=== PATIENT | male | born 1970 ===

== ENCOUNTER 2018-12-02 22:00 | Emergency (ER) | payer SELFPAY ==
[2018-12-02] MEDS ORDERED: KETOROLAC 30 MG/ML INJ ONE (22:26)
[2018-12-02] MEDS ORDERED: NA CHLORIDE 0.9% 1,000 ML ONE (22:26)
--- NOTE | 2018-12-02 22:55 | ER ---
Nurse's Notes [facility] Name: Sebastian Sawyer Age: 48 yrs Sex: Male : 1970 Arrival Date: 12/02/2018 Time: 22:03 Bed 3 Private MD: Diagnosis: Anterior dislocation of proximal end of tibia, right knee-reduced;Other internal derangements of right knee Presentation: 12/02 22:03 Presenting complaint: EMS states: Patient was pulled over by police and had lp1 license and began running into the street; Patient tripped while running and deformity to right knee noted, right leg at 45 degree angle on arrival of EMS; No LOC, denies any other injuries; + ETOH, + Marijuana. Transition of care: patient was not received from another setting of care. Onset of symptoms was December 02, 2018. Risk Assessment: Do you want to hurt yourself or someone else? Patient reports no desire to harm self or others. Initial Sepsis Screen: Does the patient meet any 2 criteria? No. Patient's initial sepsis screen is negative. Does the patient have a suspected source of infection? No. Patient's initial sepsis screen is negative. Care prior to arrival: Placed on backboard. Medication(s) given: 100mcg Fentanyl IV, 25mg Ketamine IV IV initiated. 20 GA, in the right antecubital area, Oxygen administered. via nasal cannula. 22:03 Method Of Arrival: EMS: [facility] lp1 22:03 Acuity: CHIQUITA 3 lp1 Historical: - Allergies: 22:09 No Known Allergies; lp1 - Home Meds: 22:09 None [Active]; lp1 - PMHx: 22:09 None; lp1 - PSHx: 22:09 None; lp1 - Immunization history:: Adult Immunizations unknown. - Ebola Screening: : No symptoms or risks identified at this time. - Family history:: not pertinent. - Social history:: Smoking status: unknown Patient uses alcohol, street drugs, marijuana. Screenin:09 Abuse screen: Denies threats or abuse. Denies injuries from another. Nutritional lp1 screening: No deficits noted. Tuberculosis screening: No symptoms or risk factors identified. 22:12 Fall Risk No fall in past 12 months (0 pts). Secondary diagnosis (15 points) impaired ed1 mobility, IV access (20 points). Ambulatory Aid- Crutches/Cane/Walker (15 pts). Gait- Impaired (20 pts.). Mental Status- Oriented to own ability (0 pts). Total Herman Fall Scale indicates High Risk Score (45 or more points). Fall prevention measures have been instituted. Side Rails Up X 2 Frequent Obs/Assessments Occuring As available patient and family educated on Fall Prevention Program and Strategies. Assessment: 22:00 Reassessment: Dr. Cornelius at bedside; Manual manipulation of right knee. lp1 22:12 Pain: Complains of pain in right knee Pain does not radiate. Pain currently is 9 out of ed1 10 on a pain scale. Quality of pain is described as sharp, throbbing, Pain began 30 min ago. Is continuous. Musculoskeletal: Circulation, motion, and sensation intact. Range of motion: limited in right knee. 22:20 Reassessment: Patient appears in no apparent distress at this time. No changes from ed1 previously documented assessment. Patient and/or family updated on plan of care and expected duration. Pain level reassessed. Patient is alert, oriented x 3, equal unlabored respirations, skin warm/dry/pink. Patient states symptoms have not improved. 23:24 Reassessment: Patient appears in no apparent distress at this time. Patient and/or ed1 family updated on plan of care and expected duration. Pain level reassessed. Patient is alert, oriented x 3, equal unlabored respirations, skin warm/dry/pink. Patient states feeling better. Patient states symptoms have improved. Vital Signs: 22:08 BP 140 / 86; Pulse 82; Resp 16; Pulse Ox 97% on R/A; Weight 81.65 kg (R); Height 5 ft. lp1 11 in. (180.34 cm); Pain 9/10; 22:20 BP 133 / 83; Pulse 100; Resp 16; Temp 97.5(O); Pulse Ox 99% on R/A; Pain 9/10; ed1 23:24 BP 119 / 70; Pulse 88; Resp 16; Pulse Ox 98% on R/A; Pain 6/10; ed1 22:08 Body Mass Index 25.10 (81.65 kg, 180.34 cm) lp1 ED Course: 22:03 Patient arrived in ED. lp1 22:03 Curtis Cornelius MD is Attending Physician. [facility] 22:07 Triage completed. lp1 22:08 Arm band placed on left wrist. lp1 22:11 Lanie Salazar, RN is Primary Nurse. ed1 22:12 X-ray completed. Portable x-ray completed in exam room. Patient tolerated procedure sg4 well. 22:12 Patient has correct armband on for positive identification. Placed in gown. Bed in low ed1 position. Call light in reach. Pulse ox on. NIBP on. 22:12 Maintain EMS IV. Dressing intact. Good blood return noted. Site clean \T\ dry. Gauge \T\ ed 1 site: 20G right a/c. 22:14 Knee Right 3 View XRAY In Process Unspecified. EDMS 22:54 González Atkinson MD is Referral Physician. obed 23:26 Knee immobilizer applied on right knee. ed1 23:43 Radiology exam delayed due to lab results not completed at this time. (BUN/Creatinine). vr 02/ 00:[address] via stretcher. ed1 01:27 González Atkinson MD is Referral Physician. obed 01:38 No provider procedures requiring assistance completed. IV discontinued, intact, ed1 bleeding controlled, No redness/swelling at site. Pressure dressing applied. Crutch training done. 02:03 Lower Ext Angio In Process Unspecified. EDMS Administered Medications: 12/02 22:21 Drug: TORadol 30 mg Route: IVP; Site: right antecubital; ed1 23:00 Follow up: Response: No adverse reaction; Pain is decreased ed1 22:22 Drug: NS 0.9% 1000 ml Route: IV; Rate: 1 bolus; Site: right antecubital; ed1 02 00:00 Follow up: IV Status: Completed infusion; IV Intake: 1000ml ed1 Intake: 00:00 IV: 1000ml; Total: 1000ml. ed1 Outcome: 12/02 22:54 Discharge ordered by . oebd / 01:27 Discharge ordered by . obed 01:38 Discharged to home ambulatory, with crutches, with family. ed1 01:38 Condition: good 01:38 Discharge instructions given to patient, Instructed on discharge instructions, follow up and referral plans. medication usage, Demonstrated understanding of instructions, follow-up care, medications, Prescriptions given X 2. 01:56 Patient left the ED. ed1 Signatures: Dispatcher [employer] EDMS Curtis Cornelius MD MD cha Riggs, Erika, RN RN ed1 Aby Quinones Laura, ARTHUR RN lp1 Nubia Kendall sg4 Corrections: (The following items were deleted from the chart) 12/02 22:09 22:03 Care prior to arrival: Medication(s) given: 100mcg Fentanyl IV, 25mg Ketamine IV lp1 IV initiated. 20 GA, in the right antecubital area, Oxygen administered. via nasal cannula, lp1
--- NOTE | 2018-12-02 22:55 | EDPHYS ---
Physician Documentation [facility] Name: Sebastian Sawyer Age: 48 yrs Sex: Male : 1970 Arrival Date: 12/02/2018 Time: 22:03 Bed 3 Private MD: ED Physician Curtis Cornelius HPI: 12/02 22:07 This 48 yrs old Black Male presents to ER via Unassigned with complaints of Knee Injury.obed 22:07 The patient presents with decreased range of motion, pain, swelling, right knee gross obed deformity. The complaints affect the right knee. Context: The problem was sustained outdoors. Onset: The symptoms/episode began/occurred just prior to arrival. Modifying factors: The symptoms are alleviated by remaining still, the symptoms are aggravated by movement. Associated signs and symptoms: The patient has no apparent associated signs or symptoms. Treatment prior to arrival includes: prescription medications, ketamine. Severity of symptoms: At their worst the symptoms were moderate, in the emergency department the symptoms are unchanged. The patient has not experienced similar symptoms in the past. Historical: - Allergies: 22:09 No Known Allergies; lp1 - Home Meds: 22:09 None [Active]; lp1 - PMHx: 22:09 None; lp1 - PSHx: 22:09 None; lp1 - Immunization history:: Adult Immunizations unknown. - Ebola Screening: : No symptoms or risks identified at this time. - Family history:: not pertinent. - Social history:: Smoking status: unknown Patient uses alcohol, street drugs, marijuana. ROS: 22:07 Constitutional: Negative for fever, chills, and weight loss, Eyes: Negative for injury, obed pain, redness, and discharge, ENT: Negative for injury, pain, and discharge, Neck: Negative for injury, pain, and swelling, Cardiovascular: Negative for chest pain, palpitations, and edema, Respiratory: Negative for shortness of breath, cough, wheezing, and pleuritic chest pain, Abdomen/GI: Negative for abdominal pain, nausea, vomiting, diarrhea, and constipation, Back: Negative for injury and pain, : Negative for injury, bleeding, discharge, and swelling, Skin: Negative for injury, rash, and discoloration, Neuro: Negative for headache, weakness, numbness, tingling, and seizure, Psych: Negative for depression, anxiety, suicide ideation, homicidal ideation, and hallucinations, Allergy/Immunology: Negative for hives, rash, and allergies, Endocrine: Negative for neck swelling, polydipsia, polyuria, polyphagia, and marked weight changes, Hematologic/Lymphatic: Negative for swollen nodes, abnormal bleeding, and unusual bruising. 22:07 MS/extremity: Positive for injury or acute deformity, decreased range of motion, of the right knee. Exam: 22:07 Constitutional: This is a well developed, well nourished patient who is awake, alert, obed and in no acute distress. Head/Face: Normocephalic, atraumatic. Eyes: Pupils equal round and reactive to light, extra-ocular motions intact. Lids and lashes normal. Conjunctiva and sclera are non-icteric and not injected. Cornea within normal limits. Periorbital areas with no swelling, redness, or edema. ENT: Nares patent. No nasal discharge, no septal abnormalities noted. Tympanic membranes are normal and external auditory canals are clear. Oropharynx with no redness, swelling, or masses, exudates, or evidence of obstruction, uvula midline. Mucous membranes moist. Neck: Trachea midline, no thyromegaly or masses palpated, and no cervical lymphadenopathy. Supple, full range of motion without nuchal rigidity, or vertebral point tenderness. No Meningismus. Chest/axilla: Normal chest wall appearance and motion. Nontender with no deformity. No lesions are appreciated. Cardiovascular: Regular rate and rhythm with a normal S1 and S2. No gallops, murmurs, or rubs. Normal PMI, no JVD. No pulse deficits. Respiratory: Lungs have equal breath sounds bilaterally, clear to auscultation and percussion. No rales, rhonchi or wheezes noted. No increased work of breathing, no retractions or nasal flaring. Abdomen/GI: Soft, non-tender, with normal bowel sounds. No distension or tympany. No guarding or rebound. No evidence of tenderness throughout. Back: No spinal tenderness. No costovertebral tenderness. Full range of motion. Male : Normal genitalia with no discharge or lesions. Skin: Warm, dry with normal turgor. Normal color with no rashes, no lesions, and no evidence of cellulitis. Neuro: Awake and alert, GCS 15, oriented to person, place, time, and situation. Cranial nerves II-XII grossly intact. Motor strength 5/5 in all extremities. Sensory grossly intact. Cerebellar exam normal. Normal gait. Psych: Awake, alert, with orientation to person, place and time. Behavior, mood, and affect are within normal limits. 22:07 Musculoskeletal/extremity: Extremities: decreased ROM, pain, swelling, ROM: limited active range of motion due to pain, limited passive range of motion due to pain, Circulation is intact in all extremities. Pulses: noted to be 4+ in the bilateral radial, brachial, femoral, popliteal, posterior tibial and and dorsalis pedis arteries., Sensation intact. Compartment Syndrome exam of affected extremity: is normal. DVT Exam: negative Homans' sign noted on exam, no appreciated bluish discoloration, no erythema, no increased warmth, pain, swelling, tenderness. Vital Signs: 22:08 BP 140 / 86; Pulse 82; Resp 16; Pulse Ox 97% on R/A; Weight 81.65 kg (R); Height 5 ft. lp1 11 in. (180.34 cm); Pain 9/10; 22:20 BP 133 / 83; Pulse 100; Resp 16; Temp 97.5(O); Pulse Ox 99% on R/A; Pain 9/10; ed1 23:24 BP 119 / 70; Pulse 88; Resp 16; Pulse Ox 98% on R/A; Pain 6/10; ed1 22:08 Body Mass Index 25.10 (81.65 kg, 180.34 cm) lp1 Procedures: 22:13 Reduction: of the right knee, using traction, manipulation, flexion, Immobilized with obed Patient tolerated well. Post reduction film - reveals normal alignment. MDM: 22:03 Patient medically screened. [facility] 22:12 Data reviewed: vital signs, nurses notes, radiologic studies, plain films. [facility] 12/02 22:47 Order name: CBC with Diff; Complete Time: 01:26 [facility] 12/02 22:47 Order name: Comprehensive Metabolic Panel; Complete Time: 00:17 [facility] 12/02 22:07 Order name: Knee Right 3 View XRAY [facility] 12/02 22:55 Order name: Lower Ext Angio [facility] 12/03 01:21 Order name: CBC Smear Scan; Complete Time: 01:26 [facility] 12/02 22:07 Order name: Knee Immobilizer; Complete Time: 23:26 [facility] 12/02 22:52 Order name: Ice pack; Complete Time: 22:56 obed 12/02 22:52 Order name: Crutches; Complete Time: 01:37 [facility] Administered Medications: 22:21 Drug: TORadol 30 mg Route: IVP; Site: right antecubital; ed1 23:00 Follow up: Response: No adverse reaction; Pain is decreased ed1 22:22 Drug: NS 0.9% 1000 ml Route: IV; Rate: 1 bolus; Site: right antecubital; ed1 12/03 00:00 Follow up: IV Status: Completed infusion; IV Intake: 1000ml ed1 Disposition: 12/03/18 01:27 Discharged to Home. Impression: Anterior dislocation of proximal end of tibia, right knee - reduced, Other internal derangements of right knee. - Condition is Stable. - Discharge Instructions: How to Use a Knee Brace, Knee Dislocation, Knee Immobilizer, Knee Dislocation, [id number]. - Prescriptions for Ibuprofen 600 mg Oral Tablet - take 1 tablet by ORAL route every 6 hours As needed take with food; 28 tablet. Tylenol- Codeine #3 300-30 mg Oral Tablet - take 2 tablet by ORAL route every 6 hours As needed; 30 tablet. - Medication Reconciliation Form, Thank You Letter, Antibiotic Education, Prescription Opioid Use form. - Follow up: Private Physician; When: 2 - 3 days; Reason: Recheck today's complaints, Continuance of care, Re-evaluation by your physician. Follow up: Dr. González Atkinson; When: 1 - 2 days; Reason: Recheck today's complaints, Re-evaluation by your physician. - Problem is new. - Symptoms have improved. Signatures: Dispatcher [employer] EDCA Curtis Cornelius MD MD cha Riggs, Erika, RN RN ed1 Devika Spain, RN RN lp1 Corrections: (The following items were deleted from the chart) 12/02 23:13 22:54 12/02/2018 22:54 Discharged to Home. Impression: Anterior dislocation of proximal obed end of tibia, right knee - reduced. Condition is Stable. Discharge Instructions: Knee Dislocation, Knee Dislocation, [id number]. Prescriptions for Ibuprofen 600 mg Oral Tablet - take 1 tablet by ORAL route every 8 hours As needed take with food; 21 tablet, Tylenol-Codeine #3 300-30 mg Oral Tablet - take 2 tablet by ORAL route every 6 hours As needed; 30 tablet. and Forms are Medication Reconciliation Form, Thank You Letter, Antibiotic Education, Prescription Opioid Use. Follow up: Private Physician; When: 2 - 3 days; Reason: Recheck today's complaints, Continuance of care, Re-evaluation by your physician. Follow up: Dr. González Atkinson; When: 1 - 2 days; Reason: Recheck today's complaints, Re-evaluation by your physician. Problem is new. Symptoms have improved. [facility] 12/03 01:56 01:27 12/03/2018 01:27 Discharged to Home. Impression: Anterior dislocation of proximal ed1 end of tibia, right knee - reduced; Other internal derangements of right knee. Condition is Stable. Discharge Instructions: How to Use a Knee Brace, Knee Dislocation, Knee Immobilizer, Knee Dislocation, [id number]. Prescriptions for Ibuprofen 600 mg Oral Tablet - take 1 tablet by ORAL route every 8 hours As needed take with food; 21 tablet, Tylenol-Codeine #3 300-30 mg Oral Tablet - take 2 tablet by ORAL route every 6 hours As needed; 30 tablet, Ibuprofen 600 mg Oral Tablet - take 1 tablet by ORAL route every 6 hours As needed take with food; 28 tablet, Tylenol-Codeine #3 300-30 mg Oral Tablet - take 2 tablet by ORAL route every 6 hours As needed; 30 tablet. and Forms are Medication Reconciliation Form, Thank You Letter, Antibiotic Education, Prescription Opioid Use. Follow up: Private Physician; When: 2 - 3 days; Reason: Recheck today's complaints, Continuance of care, Re-evaluation by your physician. Follow up: Dr. González Atkinson; When: 1 - 2 days; Reason: Recheck today's complaints, Re-evaluation by your physician. Problem is new. Symptoms have improved. [facility]
[2018-12-02 23:38] LABS: Absolute Lymphocytes (CBC) 1.1 K/uL (0.7-4.9); Absolute Monocytes 0.6 K/uL (0.1-1.3); Absolute Neutrophil 9.9 K/uL (1.8-8.0); Basophils % 0.5 % (0-1.3); Eosinophils % 0.2 % (0-4.4); Hematocrit 38.4 % (39.6-49.0); Lymphocytes % 9.1 % (15.3-44.8); Monocytes % 4.9 % (3.3-12.3); RBC Red Blood Cell Count 3.93 M/uL (4.33-5.43)
[2018-12-02 23:57] LABS: Albumin 3.7 g/dL (3.4-5.0); Bilirubin Total 0.4 mg/dL (0.2-1.0); Potassium 3.8 mmol/L (3.5-5.1); Protein, Total 6.9 g/dL (6.4-8.2)
[2018-12-03 01:21] LABS: Blood Morphology Comment NOT SEEN (NOT SEEN); Platelet Estimate ADEQ; Urine White Blood Cell Casts OK
--- NOTE | 2018-12-03 15:33 | RAD REPORT ---
EXAM DESCRIPTION: RAD - Knee Right 3 View - 12/02/2018 10:13 pm CLINICAL HISTORY: 48 years Male, PAIN. COMPARISON: None. FINDINGS: No fracture or dislocation. Bone mineralization is normal Joint spaces are preserved. Soft tissues are unremarkable. IMPRESSION: No acute osseous abnormality. Electronically signed by Gilles Pablo DO 12/03/2018 1:15 AM METAL WINDOW SCREEN ASSEMBLER Due to temporary technical issues with the PACS/Fluency reporting system, reports are being signed by the in house radiologist as a courtesy to ensure prompt reporting. The interpreting radiologist is f ully responsible for the content of the report.
--- NOTE | 2018-12-04 12:33 | RAD REPORT ---
EXAM DESCRIPTION: CT - Lower Ext Angio - 12/03/2018 2:13 am CLINICAL HISTORY: The patient is 48 years old an is Male; knee injury. COMPARISON: Right knee radiograph dated December 02, 2018. TECHNIQUE: Axial computed tomography images of the right lower extremity with intravenous contrast during the ar terial phase of contrast enhancement. Sagittal and coronal reformatted images were created and review ed. This CT exam was performed using one or more of the following dose reduction techniques: Automate d exposure control, adjustment of the mA and/or kV according to patient size, and/or use of iterative reconstruction technique. FINDINGS: VASCULATURE: RIGHT FEMORAL/POPLITEAL ARTERIES: Distal superficial femoral artery and popliteal artery are normal i n caliber without flow limiting stenosis or aneurysmal dilatation. The trifurcation appears within no rmal limits. OTHER VEINS: Delayed postcontrast images demonstrate no abnormal enhancement. Normal venous filling. LOWER EXTREMITY: BONES/JOINTS: Small joint effusion. No acute fracture. No dislocation. SOFT TISSUES: Suggestion of mild thickening of the medial and lateral patellar retinaculum. Additiona lly, there is soft tissue swelling involving the lateral aspect of the distal thigh/knee. IMPRESSION: 1. Normal right lower extremity runoff from the mid thigh to the mid leg. 2. No acute osseous abnormality. 3. Lateral knee soft tissue swelling and thickening of the patellar retinaculum whereas small joint e ffusion. MRI of the lower extremity may be of diagnostic use. Electronically signed by Gilles Pablo DO 12/01/2018 11:07 PM TUBERCULOSIS SPECIALIST Due to temporary technical issues with the PACS/Fluency reporting system, reports are being signed by the in house radiologist as a courtesy to ensure prompt reporting. The interpreting radiologist is [place] responsible for the content of the report.
== END 2018-12-03 01:56 | disposition home or self-care (01) ==
LOC: ER 22:00
PROC: 0SSCXZZ Reposition Right Knee Joint, External Approach (ICD-10-PCS; principal; 2018-12-03)
DX: S83.114A Anterior dislocation of proximal end of tibia, right knee, initial encounter (principal); M23.8X1 Other internal derangements of right knee; X58.XXXA Exposure to other specified factors, initial encounter; Y93.9 Activity, unspecified; Y92.89 Other specified places as the place of occurrence of the external cause
CPT/HCPCS: 36415; 73706; 80053; 85025; 96361; 96374; 99284; J7030; Q9967